=== PATIENT | female | born 1975 | race Caucasian/White ===

== ENCOUNTER 2017-02-23 13:25 | Day surgery (SDC) | payer BC ==
[2017-02-23] MEDS ORDERED: LIDOCAINE 2% MDV (20MG/ML) 20ML VIAL IV ONE (14:00)
[2017-02-23] MEDS ORDERED: PROPOFOL 10 MG/ML VIAL IV ONE (14:00)
[2017-02-23] MEDS ORDERED: FENTANYL PF 100MCG/2ML VIAL IV ONE (14:00)
--- NOTE | 2017-02-24 13:20 | Operative Note ---
DATE OF SURGERY: 02/23/2017 OPERATION: ESOPHAGOGASTRODUODENOSCOPY with biopsy. PREOPERATIVE DIAGNOSIS: Dyspepsia and epigastric pain. POSTOPERATIVE DIAGNOSIS: Nonerosive antral gastritis. PROCEDURE: After informed consent was obtained from the patient, she was placed in the left lateral decubitus position in the endoscopy suite, sedated and monitored by the department of anesthesia. A well-lubricated [id number] gastroscope was placed in the posterior oropharynx and advanced through the proximal, mid, and distal esophagus. The esophagus, GE junction, and gastric body were unremarkable. The antrum demonstrated some petechial erythematous changes but no other abnormalities. The duodenal bulb and sweep were unremarkable. J-turn views of the proximal stomach revealed no polyps, mass lesions, ulcers, or inflammation. The endoscope was straightened and antral biopsies were obtained. The endoscope was then retracted through the course of the esophagus with no new findings noted. RECOMMENDATIONS: I would suggest the patient follow up with Dr. Cordova for consideration of a laparoscopic cholecystectomy. No further investigation is warranted at this time. As always, thank you for allowing me to participate in the healthcare of your patients. CC: Eve SALAZAR Dr.
== END 2017-02-23 14:20 | disposition home or self-care (01) ==
LOC: HOP 13:25
PROVIDERS: ATTEND Internal Medicine Gastroenterology
DX: R10.13 Epigastric pain (principal); K29.60 Other gastritis without bleeding
CPT/HCPCS: 81025; 43235; 00740; J3010

== ENCOUNTER 2017-03-20 06:29 | Day surgery (SDC) | payer BC ==
--- NOTE | 2017-03-01 15:18 | History and Physical Report ---
DATE OF DICTATION: 02/27/17 CHIEF COMPLAINT: I saw Leisa in the office on 02/20/2017 in regard to abdominal pain. HISTORY OF PRESENT ILLNESS: Leisa is a 41-year-old female who states that she has been having some abdominal pain in her epigastric region which radiates to her right flank and back. She also has had some shoulder pain and low back pain as well. She states that she occasionally gets postprandial nausea and bloating. It is random and episodic for her for which she can eat the same food a few different times and has different results. She did have an ultrasound which did not show any evidence of cholecystitis or cholelithiasis. Followup HIDA scan showed a normal uptake and excretion with an ejection fraction of 37% . She had some pain with Kinevac injection. She has never had an upper endoscopy. She says she gets intermittent reflux. PAST MEDICAL HISTORY: Anxiety, chronic back pain. PAST SURGICAL HISTORY: Denies. MEDICATIONS ON ADMISSION: Effexor. ALLERGIES: No known medical allergies. FAMILY/PSYCHOSOCIAL HISTORY: She has a social alcohol and tobacco history. PHYSICAL EXAMINATION: VITAL SIGNS: Height 5 feet 3 inches, weight 180. She is afebrile. Vital signs are stable. HEART: Regular. LUNGS: Clear. ABDOMEN: Soft. Minimal epigastric tenderness. EXTREMITIES: No traces of edema. RADIOGRAPHIC DATA: I did review imaging studies. IMPRESSION: ABDOMINAL PAIN, UNKNOWN CLEAR ETIOLOGY. PLAN: Her ultrasound and HIDA scan were essentially normal although she did have some pain with Kinevac injection. At this point, we will schedule her for upper endoscopy with the Department of Gastroenterology. If this is normal, we will have a discussion about cholecystectomy in the light of normal studies. We have had mixed results in the past and cannot guarantee resolution. I will lemuel her desire after her scopes. I let her know that in the light of her normal studies, I could not guarantee any resolution with cholecystectomy. She did have some discomfort with the Kinevac injection which historically can lead to people feeling better after cholecystectomy. Options were given. She desired surgical intervention. Risks include bleeding, infection, ductal injury, possible conversion to open, postoperative bile leak, non resolution of her symptoms, postoperative diarrhea, and she understands these fully. PAM
[2017-03-20] MEDS ORDERED: PROPOFOL 10 MG/ML VIAL IV ONE (06:30)
[2017-03-20] MEDS ORDERED: SUGAMMADEX SODIUM 200 MG/2 ML VIAL IV ONE (06:30)
[2017-03-20] MEDS ORDERED: ONDANSETRON HCL IV 4 MG/2 ML VIAL IVP ONE (06:30)
[2017-03-20] MEDS ORDERED: BUPIVACAINE 0.25% W/EPI MPF 30ML VIAL IVP ONE (06:30)
[2017-03-20] MEDS ORDERED: ACETAMINOPHEN W/ CODEINE 300MG/30MG TABLET PO ONE (06:30)
[2017-03-20] MEDS ORDERED: SUFENTANIL CITRATE 50 MCG/ML AMPUL IV ONE (06:30)
[2017-03-20] MEDS ORDERED: DEXAMETHASONE 4 MG/ML 1ML VIAL IVP ONE (06:30)
[2017-03-20] MEDS ORDERED: FAMOTIDINE 20MG TABLET PO ONE (06:30)
[2017-03-20] MEDS ORDERED: DESFLURANE 240 ML BTL INH ONE (06:30)
[2017-03-20] MEDS ORDERED: MECLIZINE 25 MG TABLET PO ONE (06:30)
[2017-03-20] MEDS ORDERED: KETOROLAC 30 MG/ML VIAL IVP ONE (06:30)
[2017-03-20] MEDS ORDERED: ACETAMINOPHEN 1,000 MG/100 ML BTL IV ONE (06:30)
[2017-03-20] MEDS ORDERED: ROCURONIUM BROMIDE 50MG/5ML VIAL IV ONE (06:30)
[2017-03-20] MEDS ORDERED: METOCLOPRAMIDE 10 MG TABLET PO ONE (06:30)
[2017-03-20] MEDS ORDERED: MIDAZOLAM HCL 2MG/2ML VIAL IV ONE (06:30)
--- NOTE | 2017-03-20 14:20 | Operative Note ---
DATE OF SURGERY: 03/20/2017 Surgeon: Ezio Cordova DO PREOPERATIVE DIAGNOSIS: Right upper quadrant pain. POSTOPERATIVE DIAGNOSIS: Right upper quadrant pain. OPERATION: Laparoscopic cholecystectomy. Indication: The patient is a 41-year-old female who is having ongoing right subcostal postprandial pain. She had pain with Kinevac injection on her HIDA scan but no obvious findings other than that. She underwent an upper endoscopy which was normal. She came back and saw me a couple of times and could not obtain any relief. We did discuss cholecystectomy in the light of normal findings and she understood the risks, which include but are not limited to bleeding, infection, ductal injury, possible conversion to open, postoperative bile leak, nonresolution of her symptoms. She understood this fully. PROCEDURE: Thereafter consent was signed and questions answered. She was taken to the operating room and placed in a supine position. General anesthesia was administered per the department of anesthesia. The patient's abdomen was prepped and draped in the usual sterile fashion. The infraumbilical region was anesthetized with a total of 2 mL of 0.25% Sensorcaine with epinephrine. A 2 cm infraumbilical incision was made. This was carried down to the anterior rectus fascia. This was incised. Christopher clamps were placed on the fascial edges and brought up into the wound. Stay sutures of 0 Vicryl were placed. Posterior rectus sheath was identified and incised. The peritoneal cavity was entered bluntly. At this time, a 10 mm blunt Abeba port was placed. Adequate pneumoperitoneum was established. Under direct visualization, additional 5 mm epigastric and two 5 mm right subcostal ports were placed. The patient was then rotated into reverse Trendelenburg, rotation to left. The gallbladder was identified, lifted in cephalad and lateral direction. There were dense omental adhesions anterior which were taken down bluntly with the Yonathan harmonic. The hepatocystic triangle was thoroughly dissected out. There was no aberrant anatomy, no posterior ductal structures. The cystic duct and cystic artery were clearly identified. The distal half of the gallbladder was released from the cystic plate elongating our space. Each one was doubly clipped and cut in a standard fashion. Gallbladder was then taken off the liver bed with the Yonathan harmonic. This was extracted infraumbilically. Right upper quadrant was rechecked and found to be hemostatic. No bleeding. No bile leak. No bowel injury noted. The patient was leveled out. The pneumoperitoneum was released. All ports were removed. The fascia was closed with 0 Vicryl in a [id number] fashion. The skin of all 4 ports was closed with 4-0 Vicryl. The patient was taken to the recovery room in satisfactory condition. FINDINGS AT THE TIME OF SURGERY: Chronic cholecystitis. CC: Eve SALAZAR
== END 2017-03-20 10:38 | disposition home or self-care (01) ==
LOC: SUR 06:29
PROVIDERS: ATTEND Surgery
DX: K81.1 Chronic cholecystitis (principal); F17.210 Nicotine dependence, cigarettes, uncomplicated
CPT/HCPCS: 81025; J1885; J2405; J3490